=== PATIENT | female | born 1965 | race Caucasian/White ===

== ENCOUNTER 2017-06-26 11:45 | Emergency (ER) | payer OTHER, MEDICARE ==
--- NOTE | 2017-06-26 13:12 | RAD ---
Indication: Left foot pain. 3 views of left foot demonstrates an oblique fracture through the proximal phalanx of the fifth digit. Soft tissue swelling is noted. IMPRESSION: Fracture mildly comminuted proximal phalanx fifth digit.
--- NOTE | 2017-06-26 13:41 | UC ---
Rafa Mariano Angela, [facility] on 06/26/17 at 1227 . 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 Pt has not taken any pain medication for her toe pain. She denies urinary symptoms, abd pain, vomiting. She takes morphine for chronic pain from osteoarthritis and fibromyalgia. Last time she saw her PCP was in April and was seen for back pain. Pt is currently on disability. MDs note: Vital signs are stable, pulse 105, blood pressure is 135/96. Left toe pain. Visit history includes fibromyalgia and various orthopedic complaints. Pt has multiple allergies. Nurses Note: clipped left little toe on a table and it is off to the side with pain 09/28 - History of Current Complaint Chief Complaint: UCLowerExtremity Stated Complaint: TOE INJURY Time Seen by Provider: 06/26/17 12:19 Hx Obtained From: Patient Onset/Duration: Sudden Onset - s/p stubbing left fifth toe Aggravating Factor(s): Standing, Ambulation Alleviating Factor(s): Nothing - Allergies/Home Medications Allergies/Adverse Reactions: Allergies Allergy/AdvReac Type Severity Reaction Status Date / Time CI Pigment Blue 63 Allergy Severe Depression, Verified 05/26/17 14:36 [From Cymbalta] Nausea Codeine Allergy Severe Severe Verified 05/26/17 14:36 Vomiting Duloxetine [From Cymbalta] Allergy Severe Depression, Verified 05/26/17 14:36 Nausea Gabapentin Allergy Severe Unknown Verified 05/26/17 14:36 Reaction Details Hydrocodone Allergy Severe Severe Verified 05/26/17 14:36 Vomiting Meperidine [From Demerol HCl] Allergy Severe Severe Verified 05/26/17 14:36 Vomiting Metronidazole [From Flagyl] Allergy Severe Hives, Rash Verified 05/26/17 14:36 Milnacipran [From Savella] Allergy Severe Rash And Verified 05/26/17 14:36 Itching Naproxen Allergy Severe ANAPHYLATIC Verified 05/26/17 14:36 SHOCK, HIVES, ITCHING Penicillins Allergy Severe Anaphylatic Verified 05/26/17 14:36 Shock, HIVES Sulfa Antibiotics Allergy Severe Rash And Verified 05/26/17 14:36 Itching Pregabalin [From Lyrica] Allergy Intermediate Depression, Verified 05/26/17 14: 36 Nausea Latex Allergy Blisters Verified 05/26/17 14:36 Oxycodone [From Percocet] Allergy Severe Verified 05/26/17 14:36 Vomiting deodorant soap Allergy Severe Rash And Uncoded 05/26/17 14:36 Itching PMH/Surg Hx/FS Hx/Imm Hx - Additional Past Medical History Additional PMH: PMHx: fibromyalgia and osteoarthritis Other Endocrine History: DENIES: Diabetes Other Cardiovascular History: DENIES: HTN - Surgical History Surgical History: Yes Surgery Procedure, Year, and Place: [facility] 12[facility] AGE 16. TUBAL 1994. 8-8 SURGERIES DUE TO ADHESIONS ANOTHER TUBAL UNTIL HYSTERECTOMY 1998. SEPTOPLASTY 2000. TONSILS 2014. LEFT SHOULDER/KNEE SURGERY 2006. RADIO FREQUENCY SHOTS IN NECK SINCE 2010. EYE SURGERY 10/30/2016 PREVENTATIVE FOR GLAUCOMA WITH LASER - Family History Known Family History: Positive: Diabetes - father and mother's side - Social History Occupation: Disabled Alcohol Use: Rare Alcohol Amount: BEER OR WINE Substance Use Type: None, Marijuana Substance Use Comment - Amount & Last Used: has script for [facility] Smoking Status (MU): Former Smoker Type: Cigarettes Amount Used/How Often: SOCIALLY Have You Smoked in the Last Year: No When Did the Patient Quit Smoking/Using Tobacco: 2006 Review of Systems Constitutional: Negative Skin: Negative Eyes: Negative ENT: Negative Respiratory: Negative Cardiovascular: Negative Gastrointestinal: Negative Genitourinary: Negative Motor: Negative Neurovascular: Negative Musculoskeletal: Other: - mild back pain, left fifth toe pain Neurological: Negative All Other Systems Reviewed And Are Negative: Yes Physical Exam Triage Information Reviewed: Yes Vital Signs: Initial Vital Signs Temp 97.7 F 06/26/17 12:13 Pulse 105 06/26/17 12:13 Resp 20 06/26/17 12:13 BP 135/96 06/26/17 12:13 Pulse Ox 100 06/26/17 12:13 Vital Signs Reviewed: Yes - Additional Comments The patient is well-nourished in no acute distress. The skin is warm and dry and skin color reflects adequate perfusion. HEENT: The head is normocephalic and atraumatic. The pupils are equal and reactive. The conjunctivae are clear and without drainage. Nares are patent and without drainage. Mouth reveals moist mucous membranes and the throat is without erythema and exudate. The external ears are intact. The ear canals are patent and without drainage. The tympanic membranes are intact. Neck is supple with full range of motion and non-tender. Respiratory: Chest is non-tender. Lungs are clear to auscultation and breath sounds are symmetrical and equal. Cardiovascular: Hear is regular rate and rhythm. There is no murmur or rub auscultated. There is no peripheral edema and pulses are symmetrical and equal. Abdomen: The abdomen is soft and non-tender. There are normal bowel sounds heard in all four quadrants and there is no organomegaly palpated. Musculoskeletal: There is no back pain noted. There is good capillary refill. There is no peripheral edema or calf tenderness elicited. RIGHT FOOT SHOWS A LATERALLY ANGULATED FIFTH TOE WITH SOME SWELLING AND REDNESS. IT IS PAINFUL TO PALPATION. THERE ARE NO OPEN FRACTURES. Neurological: Patient is alert and oriented to person, place and time. The patient has symmetrical motor strength in all four extremities. Psychiatric: The patient has an appropriate affect and does not exhibit any anxiety or depression. Diagnostics - Radiology Left Foot XR Xray Interpretation: Positive (See Comments) - IMPRESSION: Fracture mildly comminuted proximal phalanx fifth digit. ED physician has reviewed this radiology report and agrees. Radiology Interpretation Completed By: Radiologist Lower Extremity Course/Dx - Course Course Of Treatment: Medications have been included in the original chart and reviewed. Patient is Urgent/Emergent. BP elevated due to current condition w/o HTN in PMH On exam, RIGHT FOOT SHOWS A LATERALLY ANGULATED FIFTH TOE WITH SOME SWELLING AND REDNESS. IT IS PAINFUL TO PALPATION. THERE ARE NO OPEN FRACTURES. Left foot XR shows a fracture mildly comminuted proximal phalanx fifth digit. - Differential Dx/Diagnosis Provider Diagnoses: Fracture of the left fifth toe Discharge - Discharge Plan Condition: Stable Disposition: HOME Patient Education Materials: Toe Fracture (ED) Referrals: Kimberley Fernando MD [Primary Care Provider] - Additional Instructions: WE DISCUSSED: You have a fracture of the 5th toe, the tiny bone closest to the foot. Elevate, ice, sae tape; take your pain medication. This should heal over the 3 to 4 weeks. See your doctor for any increased pain or disability. The documentation as recorded by the Rafa harrell Angela accurately reflects the service I personally performed and the decisions made by me, Elpidio Parish MD.
[2017-06-26 13:54] VITALS: BP 135/82
== END 2017-06-26 13:54 | disposition home or self-care (01) ==
LOC: UCEAST 11:45
DX: S92.515A Nondisplaced fracture of proximal phalanx of left lesser toe(s), initial encounter for closed fracture (principal); W22.03XA Walked into furniture, initial encounter; Y93.9 Activity, unspecified; Y92.9 Unspecified place or not applicable
CPT/HCPCS: 99213; G0463

== ENCOUNTER 2018-03-14 07:02 | Emergency (ER) | payer OTHER, MEDICARE ==
[2018-03-14 07:17] VITALS: BP 108/94
--- NOTE | 2018-03-14 07:27 | UC ---
Lower Extremity/Ankle HPI - HPI Summary HPI Summary: She is a 52 year old female who presents for left 3rd and 4th toe pain after she stubbed it yesterday into the laundry trolley . Rates pain at 4 to 5/ 10. She is limping and there is redness and swelling around the 3rd and the 4th toe. She is taking medical marijuana for for her chronic pain and that is helping her. No other treatment done so far. - History of Current Complaint Chief Complaint: UCLowerExtremity Stated Complaint: TOE INJURY Time Seen by Provider: 03/14/18 07:17 Hx Obtained From: Patient Hx Last Menstrual Period: 1998, s/p hyesterectomy ?: No Onset/Duration: Sudden Onset - 1 day Severity Initially: Moderate Severity Currently: Moderate Pain Intensity: 4 Pain Scale Used: 0-10 Numeric Aggravating Factor(s): Standing, Ambulation Alleviating Factor(s): Rest, Elevation Able to Bear Weight: Yes - protected weight bearing Related History: Other - at home Feet (Multiple View): 1 - 3rd toe 2 - 3rd and 4th toe - Risk Factors Gout Risk Factors: Negative DVT Risk Factors: Negative Septic Arthritis Risk Factor: Negative - Allergies/Home Medications Allergies/Adverse Reactions: Allergies Allergy/AdvReac Type Severity Reaction Status Date / Time codeine Allergy Unknown Verified 01/21/18 10:58 Reaction Details duloxetine Allergy Unknown Verified 03/14/18 07:17 Reaction Details gabapentin Allergy Unknown Verified 03/14/18 07:17 Reaction Details hydrocodone Allergy Unknown Verified 03/14/18 07:17 Reaction Details latex Allergy Unknown Verified 03/14/18 07:17 Reaction Details meperidine Allergy Unknown Verified 03/14/18 07:17 Reaction Details metronidazole Allergy Unknown Verified 03/14/18 07:17 Reaction Details milnacipran Allergy Unknown Verified 03/14/18 07:17 Reaction Details naproxen Allergy Unknown Verified 03/14/18 07:17 Reaction Details oxycodone Allergy Unknown Verified 03/14/18 07:17 Reaction Details Penicillins Allergy Unknown Verified 03/14/18 07:17 Reaction Details pregabalin Allergy Unknown Verified 03/14/18 07:17 Reaction Details Sulfa (Sulfonamide Allergy Unknown Verified 03/14/18 07:17 Antibiotics) Reaction Details CI Pigment Blue 63 Allergy Unknown Uncoded 03/14/18 07:17 Reaction Details Deodorant Soap Allergy Unknown Uncoded 03/14/18 07:17 Reaction Details Home Medications: Home Medications Albuterol HFA INHALER* [Ventolin HFA Inhaler*] 2 puff INH Q4H PRN 03/14/18 [ History Confirmed 03/14/18] Estradiol 0.025 MG PATCH (NF) 1 patch TRANSDERM 03/14/18 [History] Fluticasone HFA 110 mcg(NF) [Flovent HFA 110 mcg(NF)] 2 puff INH BID 03/14/18 [ History Confirmed 03/14/18] PMH/Surg Hx/FS Hx/Imm Hx Previously Healthy: Yes Other Endocrine History: negative Other Cardiovascular History: Negative Respiratory History: COPD - COPD getting PFTS shortly - Surgical History Surgical History: Yes Surgery Procedure, Year, and Place: CYST REMOVED FROM RIGHT HAND -[place] AGE 12. APPENDIX AGE 16. TUBAL 1994. 8-9 SURGERIES DUE TO ADHESIONS ANOTHER TUBAL UNTIL HYSTERECTOMY 1998. SEPTOPLASTY 2000. TONSILS 2014. LEFT SHOULDER/KNEE SURGERY 2006. RADIO FREQUENCY SHOTS IN NECK SINCE 2010. EYE SURGERY 10/30/2016 PREVENTATIVE FOR GLAUCOMA WITH LASER - Family History Known Family History: Positive: Unknown, Diabetes - father and mother's side - Social History Alcohol Use: Occasionally Alcohol Amount: BEER OR WINE Substance Use Type: Marijuana Substance Use Comment - Amount & Last Used: Medicinal Marijuana Smoking Status (MU): Former Smoker Type: Cigarettes Amount Used/How Often: SOCIALLY Have You Smoked in the Last Year: No When Did the Patient Quit Smoking/Using Tobacco: 2006 Review of Systems Constitutional: Negative Skin: Negative Eyes: Negative ENT: Negative Respiratory: Negative Cardiovascular: Negative Gastrointestinal: Negative Genitourinary: Negative Motor: Negative Neurovascular: Negative Musculoskeletal: Other: - pain in left 3rd and 4th toe Neurological: Negative Psychological: Negative Is Patient Immunocompromised?: No All Other Systems Reviewed And Are Negative: Yes Physical Exam Triage Information Reviewed: Yes Appearance: Well-Appearing, No Pain Distress Vital Signs: Initial Vital Signs Temp 97.9 F 03/14/18 07:12 Pulse 79 03/14/18 07:12 Resp 16 03/14/18 07:12 BP 108/94 03/14/18 07:12 Pulse Ox 98 03/14/18 07:12 Vital Signs Reviewed: Yes Eyes: Positive: Conjunctiva Clear ENT: Positive: Hearing grossly normal. Negative: Nasal congestion, Trismus, Muffled voice, Hoarse voice Respiratory Exam: Normal Respiratory: Positive: Lungs clear, Normal breath sounds, No respiratory distress. Negative: Crackles, Rhonchi, Stridor, Wheezing Cardiovascular Exam: Normal Cardiovascular: Positive: RRR, No Murmur, Pulses Normal, Brisk Capillary Refill Musculoskeletal Exam: Other - Gait: antalgic but can bear weight . left foot: webbed toe - 2nd and 3rd. redeness and edema is noted at the 3rd DIP joint mainly with some in 4th toe. Tenderness to palpation is noted at the 3rd DIP joint and mild on 4th toe. Painful ROM on the left 3rd DIP joint Musculoskeletal: Positive: No Edema, ROM Limited @ - 3rd DIP joint, Edema @ - 3rd toe Skin Exam: Normal Skin: Negative: rashes Diagnostics - Radiology No standard instances Xray Interpretation: No Acute Changes Radiology Interpretation Completed By: ED Physician - Xrays of left 3rd toe and foot: negative for fracture, mild arthritis.( final read awaited) Lower Extremity Course/Dx - Course Course Of Treatment: Patient got Xrays which were negative for fracture. Patient will be discharged home, she already has the post op shoe She does not need painmedication as she is on medical marijuana. - Differential Dx/Diagnosis Differential Diagnosis/HQI/PQRI: Arthritis, Contusion - left 3rd toe Provider Diagnoses: Contusion of the left 3rd and 4th toe with arthritis flare, No fracture. Discharge - Sign-Out/Discharge Documenting (check all that apply): Discharge/Admit/Transfer - Discharge Plan Condition: Stable Disposition: HOME Patient Education Materials: Foot Contusion (ED) Referrals: Kimberley Fernando MD [Primary Care Provider] - 2 Weeks Additional Instructions: You have a foot contusion on your 3rd toe. Plan to rest in a post op shoe that you already have . Ice 15 min at a time, 3 to 4 times per day . Pain control as needed. Follow up with your primary care / orthopedics in 2 weeks if no better , sooner if symptoms get worse. - Billing Disposition and Condition Condition: STABLE Disposition: HOME
--- NOTE | 2018-03-14 08:20 | RAD ---
HISTORY: Left third toe injury, pain in third and fourth digits of the left foot COMPARISONS: March 06, 2018 VIEWS: 5, Frontal, lateral, and oblique views of the left forefoot with frontal and lateral views of the left foot FINDINGS: BONE DENSITY: Normal. BONES: There is no displaced fracture. There are calcaneal enthesophytes. JOINTS: There is no arthropathy. ALIGNMENT: There is no dislocation. SOFT TISSUES: Unremarkable. OTHER FINDINGS: None. IMPRESSION: HEEL SPURS. NO ACUTE OSSEOUS INJURY. IF SYMPTOMS PERSIST, RECOMMEND REPEAT IMAGING.
== END 2018-03-14 08:35 | disposition home or self-care (01) ==
LOC: UCEAST 07:02
DX: S90.122A Contusion of left lesser toe(s) without damage to nail, initial encounter (principal); W22.8XXA Striking against or struck by other objects, initial encounter; Y93.9 Activity, unspecified; Y92.9 Unspecified place or not applicable; M77.32 Calcaneal spur, left foot; M19.072 Primary osteoarthritis, left ankle and foot; J44.9 Chronic obstructive pulmonary disease, unspecified; Z88.5 Allergy status to narcotic agent; Z88.0 Allergy status to penicillin; Z88.2 Allergy status to sulfonamides; Z88.8 Allergy status to other drugs, medicaments and biological substances; Z91.040 Latex allergy status; Z87.891 Personal history of nicotine dependence

== ENCOUNTER 2019-08-10 07:02 | Day surgery (SDC) | payer OTHER, MEDICARE ==
[~2019-08-10 07:02] MED LIST: Buffered Lidocaine 1% SYRIN* 1 ML/SYRINGE INTRADERM ONE
[2019-08-10] MEDS ORDERED: Midazolam* 1 MG/ML 2 ML VIAL (2 MG) ONE ×2 (07:52→08:19)
[2019-08-10] MEDS ORDERED: Lidocaine 1% MPF ** 5 ML VIAL ONE (09:12)
[2019-08-10] MEDS ORDERED: Ketorolac 0.5% OPHTH (NF) 0.5 % 5 ML BTL ONE (09:12)
[2019-08-10] MEDS ORDERED: Cyclopentolate 1% OPTH.SOL* 2 ML BTL ONE (09:12)
[2019-08-10] MEDS ORDERED: Phenylephrine OPHTH SOL 2.5%* 2 ML ONE (09:12)
[2019-08-10] MEDS ORDERED: Neomycin/Polymy/Dex OPHTH.OIN* 3.5 GM ONE (09:12)
[2019-08-10] MEDS ORDERED: Tropicamide 1% OPTH.SOL* BTL ONE (09:12)
[2019-08-10] MEDS ORDERED: Tetracaine 0.5% OPTH.SOL 4 ML* 1 DROP BTL ONE (09:12)
[2019-08-10 09:35] VITALS: BP 100/63
--- NOTE | 2019-08-10 10:10 | OP ---
DATE OF OPERATION/DATE OF DICTATION: 08/10/2019 - [facility] DATE OF : 1965. SURGEON: Dr. Kishan Corona. INTERACTIVE MEDIA DESIGNER: None. ANESTHESIA: Topical with intravenous sedation. PRE-OP DIAGNOSIS: Cataract, right eye. POST-OP DIAGNOSIS: Cataract, right eye. OPERATIVE PROCEDURE: Phacoemulsification and cataract extraction with posterior chamber intraocular lens implant, right eye. COMPLICATIONS: None. BLOOD LOSS: None. DESCRIPTION OF PROCEDURE: The patient was brought to the operating room and received a small amount of intravenous sedation. A drop of Tetracaine was placed in her right eye. She was prepped and draped in the usual sterile fashion for ophthalmic surgery and attention was directed to the right eye where a speculum was placed. A paracentesis was created at the 11 o'clock position and 0.1 cc of 1 percent preservative-free Lidocaine was injected into the anterior chamber followed by DisCoVisc. The eye was digitally stabilized while a 2.75 mm keratome was used to create a triplanar clear corneal incision at the 9 o'clock position. A continuous curvilinear capsulorrhexis was created with a cystotome and Utrata forceps. BSS on a cannula was used to hydrodissect the lens from the capsule. Phacoemulsification was performed in a divide-and- conquer technique to create four fragments which were removed. Residual cortical material was removed with irrigation and aspiration. DisCoVisc was used to inflate the capsular bag and an AUOOTO 28.5 diopter lens was folded and inserted into the capsular bag. DisCoVisc was removed using irrigation and aspiration. BSS on a cannula was used to hydrate the corneal stroma and seal the wound. At the end of the case the pupil was round and the lens was centered. The eye was of normal pressure and the wound was water tight. The speculum was removed and topical Maxitrol ointment was placed on the surface of the eye. The eye was closed, patched and shielded and the patient was sent to the recovery room in stable condition with post operative instructions and follow-up appointment given. [id number]/CPS #: [id number] MTDD
== END 2019-08-10 08:56 | disposition home or self-care (01) ==
LOC: OREAST 07:02
PROVIDERS: ATTEND Ophthalmology
DX: H25.11 Age-related nuclear cataract, right eye (principal); M81.0 Age-related osteoporosis without current pathological fracture; M19.90 Unspecified osteoarthritis, unspecified site; M79.7 Fibromyalgia; G89.4 Chronic pain syndrome; Z87.891 Personal history of nicotine dependence; J45.909 Unspecified asthma, uncomplicated
CPT/HCPCS: A9270-GY; J2250; V2632

== ENCOUNTER 2019-08-17 07:09 | Day surgery (SDC) | payer OTHER, MEDICARE ==
[2019-08-17] MEDS ORDERED: Midazolam* 1 MG/ML 2 ML VIAL (2 MG) ONE ×2 (07:48→08:04)
[2019-08-17] MEDS ORDERED: fentaNYL* 50 MCG/ML 2 ML VIAL (100 MCG VIAL) ONE (08:11)
[2019-08-17 08:50] VITALS: BP 103/54
[2019-08-17] MEDS ORDERED: Cyclopentolate 1% OPTH.SOL* 2 ML BTL ONE (09:11)
[2019-08-17] MEDS ORDERED: Tetracaine 0.5% OPTH.SOL 4 ML* 1 DROP BTL ONE (09:12)
[2019-08-17] MEDS ORDERED: Ketorolac 0.5% OPHTH (NF) 0.5 % 5 ML BTL ONE (09:12)
[2019-08-17] MEDS ORDERED: Phenylephrine OPHTH SOL 2.5%* 2 ML ONE (09:12)
[2019-08-17] MEDS ORDERED: Lidocaine 1% MPF ** 5 ML VIAL ONE (09:12)
[2019-08-17] MEDS ORDERED: Neomycin/Polymy/Dex OPHTH.OIN* 3.5 GM ONE (09:12)
[2019-08-17] MEDS ORDERED: Tropicamide 1% OPTH.SOL* BTL ONE (09:12)
--- NOTE | 2019-08-17 09:19 | OP ---
DATE OF OPERATION/DATE OF DICTATION: 08/17/2019 - [facility] DATE OF : 1965. SURGEON: Dr. Kishan Corona. KEY BED INSTALLER: None. ANESTHESIA: Topical with intravenous sedation. PRE-OP DIAGNOSIS: Cataract, left eye. POST-OP DIAGNOSIS: Cataract, left eye. OPERATIVE PROCEDURE: Phacoemulsification and cataract extraction with posterior chamber intraocular lens implant, left eye. COMPLICATIONS: None. BLOOD LOSS: None. DESCRIPTION OF PROCEDURE: The patient was brought to the operating room and received a small amount of intravenous sedation. A drop of Tetracaine was placed in her left eye. She was prepped and draped in the usual sterile fashion for ophthalmic surgery and attention was directed to the left eye where a speculum was placed. A paracentesis was created at the 5 o'clock position and 0.1 cc of 1 percent preservative-free Lidocaine was injected into the anterior chamber followed by DisCoVisc. The eye was digitally stabilized while a 2.75 mm keratome was used to create a triplanar clear corneal incision at the 3 o'clock position. A continuous curvilinear capsulorrhexis was created with a cystotome and Utrata forceps. BSS on a cannula was used to hydrodissect the lens from the capsule. Phacoemulsification was performed in a divide-and- conquer technique to create four fragments which were removed. Residual cortical material was removed with irrigation and aspiration. DisCoVisc was used to inflate the capsular bag and an AUOOTO 26.5 diopter lens was folded and inserted into the capsular bag. DisCoVisc was removed using irrigation and aspiration. BSS on a cannula was used to hydrate the corneal stroma and seal the wound. At the end of the case the pupil was round and the lens was centered. The eye was of normal pressure and the wound was water tight. The speculum was removed and topical Maxitrol ointment was placed on the surface of the eye. The eye was closed, patched and shielded and the patient was sent to the recovery room in stable condition with post operative instructions and follow-up appointment given. [id number]/CPS #: [id number] MTDD
== END 2019-08-17 08:38 | disposition home or self-care (01) ==
LOC: OREAST 07:09
PROVIDERS: ATTEND Ophthalmology
DX: H25.12 Age-related nuclear cataract, left eye (principal); J45.909 Unspecified asthma, uncomplicated; M81.0 Age-related osteoporosis without current pathological fracture; Z87.891 Personal history of nicotine dependence; M19.90 Unspecified osteoarthritis, unspecified site; M79.7 Fibromyalgia; Z87.442 Personal history of urinary calculi
CPT/HCPCS: A9270-GY; J2250; J3010; V2632